=== PATIENT | male | born 1985 | race Two or more races ===

== ENCOUNTER 2020-06-01 10:26 | Emergency (ER) | payer SELFPAY ==
[~2020-06-01] VITALS: Ht 167.6 cm; Wt 70.3 kg
[2020-06-01 10:28] VITALS: BP 134/78; Ht 167.6 cm; Wt 70.3 kg
== END 2020-06-01 11:10 | disposition home or self-care (01) ==
LOC: ED 10:26
DX: U07.1 COVID-19 (principal); R10.9 Unspecified abdominal pain
CPT/HCPCS: U0003-CS